=== PATIENT | male | born 1965 | race Caucasian/White ===

== ENCOUNTER → 2016-07-01 | Outpatient (CLI) | payer OTHER ==
--- NOTE | 2016-07-01 21:11 | MR ---
EXAMINATION TYPE: MRI brain without contrast DATE OF EXAM: 07/01/2016 8:31 PM COMPARISON: NONE HISTORY: Headaches, neck pain, lt shoulder numbness x 5 years, no trauma/surgery T1-weighted sagittal, T2, FLAIR, and diffusion axial, and T2 coronal coronal views of the brain are s ubmitted. There is no evidence of acute ischemia. The ventricles, basal cisterns, and sulci overlying the conv exities are consistent with the patient's age. There is no mass effect. There is mucosal thickening involving the posterior nasopharynx which be correlated clinically. White matter: There are approximately 12 white matter lesions seen scattered throughout both cerebral hemispheres. All measure 5 mm or less. No callosal lesions. No lesions perpendicular to the ventricu lar system. No posterior fossa lesions. Craniocervical junction is maintained. Sella turcica has a normal appearance. Changes of mild chronic sinusitis. IMPRESSION: 1. No acute intracranial process. 2. Mild nonspecific white matter changes can be seen with hypertension, migraine headaches, remote mi crovascular ischemia. Demyelinating process not excluded. 3. Mucosal thickening involving the posterior nasopharynx may be postinflammatory but should be corre lated clinically. EXAMINATION TYPE: MRI cervical spine without contrast DATE OF EXAM: 07/01/2016 8:31 PM COMPARISON: NONE HISTORY: Headaches, neck pain, lt shoulder numbness x 5 years, no trauma/surgery TECHNIQUE: T1 sagittal and coronal, T2 sagittal, and gradient echo axial views of the cervical spine are submitted. FINDINGS: The cranial cervical junction is preserved. There is abnormal signal within the cervical s jocelyn cord posteriorly on the left at C5-C6 measures 2 mm. At C2-3 there is mild disc desiccation. Neural foramina patent. No disc herniation or canal stenosis. There is mild bilateral uncovertebral joint hypertrophy. At C3-4 there is severe degenerative disc disease with 1 to 2 mm retrolisthesis of C3 on C4. There is broad-based disc bulging which results in moderate canal stenosis. There is encroachment and mild co mpression of the anterior margin of the spinal cord. Uncovertebral joint hypertrophy contributes to m oderate to severe bilateral foraminal encroachment. 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 No disc herniation o r canal stenosis. Neural foramina patent. At C5-6 there is severe degenerative disc disease. There is diffuse disc bulging capped by spur. This results in anterior compression of the spinal cord and severe canal stenosis. Bilateral foraminal en croachment to a significant degree secondary to uncovertebral joint hypertrophy. Facet arthropathy no melina. At C6-7 there is to severe degenerative disc disease with diffuse disc bulging greater paracentrally and laterally to the right with right-sided moderate foraminal encroachment and moderate left foramin al encroachment. There is mild canal stenosis with disc bulging capped by spur. At C7-T1 there is no disc herniation or canal stenosis. IMPRESSION: 1. Multilevel severe degenerative disc disease with disc protrusions capped by spur resulting in yaw re canal stenosis at C3-4 and C5-C6 with moderate changes at C6-C7. 2. There is anterior compression of the spinal cord at C3-4 and to a greater extent C5-C6. Abnormal s ignal within the spinal cord at the C5-6 level is nonspecific but may be related to compressive myeli tis. Correlate clinically. 3. Multilevel significant foraminal encroachment as discussed above. 4. Suggestion of disc herniation or protrusion at T3-T4 which is not included on the axial images of the cervical spine. Correlate clinically and if necessary with thoracic spine MRI.
== END | disposition home or self-care (01) ==
LOC: RADMRIMAIN 19:45
PROVIDERS: ATTEND Family Medicine
DX: M48.02 Spinal stenosis, cervical region (principal); M50.21 Other cervical disc displacement, high cervical region; M50.31 Other cervical disc degeneration, high cervical region; R90.82 White matter disease, unspecified
CPT/HCPCS: 70551; 72141

== ENCOUNTER → 2016-10-02 | Outpatient (CLI) | payer OTHER ==
[2016-10-02 18:52] LABS: Anion Gap 13 mmol/L; Blood Urea Nitrogen 18 mg/dL (9-20); Carbon Dioxide 26 mmol/L (22-30); Chloride 101 mmol/L (98-107); Non-African American GFR(MDRD) >60 (>60 ml/min/1.73 sqM); Potassium 4.3 mmol/L (3.5-5.1); Sodium 140 mmol/L (137-145)
[2016-10-02 19:03] LABS: Prothrombin Time 10.6 sec (9.0-12.0)
[2016-10-02 19:33] LABS: CH 31.2; CHCM 31.7; HCT 47.9 % (39.0-53.0); HGB 15.8 gm/dL (13.0-17.5); MCH 32.5 pg (25.0-35.0); MCHC 32.9 g/dL (31.0-37.0); MCV 98.6 fL (80.0-100.0); Mean Platelet Volume 7.4; RBC 4.86 m/uL (4.30-5.90); RDW 12.7 % (11.5-15.5); WBC 6.2 k/uL (3.8-10.6)
== END ==
LOC: MMGSC 12:05
PROVIDERS: ATTEND Neurological Surgery
DX: M48.02 Spinal stenosis, cervical region (principal)
CPT/HCPCS: 36415; 80051; 82565; 84520; 85027; 85610; 85730

== ENCOUNTER → 2018-02-26 | Outpatient (CLI) | payer OTHER ==
--- NOTE | 2018-02-26 18:45 | MR ---
EXAMINATION TYPE: MR angio head wo con DATE OF EXAM: 02/26/2018 COMPARISON: NONE HISTORY: cephalgia TECHNIQUE: Time of flight images focusing on the [place] of [place] were performed without contrast.. 2-D and 3-D postprocessing imaging is performed on MRI scanner and reviewed. 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 Patent larger right vertebral artery. No significant stenosis in the posterior circulation is present. There are hypoplastic posterior communicating arteries noted b ilaterally. No aneurysm is evident. There is patent anterior communicating arteries seen. There is no significant focal stenosis or aneur ysmal change. Somewhat small caliber right A1 segment is incidentally seen. IMPRESSION: No aneurysmal change at the level of the [place] of [place].
--- NOTE | 2018-02-26 18:54 | MR ---
EXAMINATION TYPE: MR brain wo con DATE OF EXAM: 02/26/2018 COMPARISON: MRI brain July 01, 2016. HISTORY: cephalgia per order. Severe headache per patient. TECHNIQUE: Multiplanar, multisequence imaging of the brain and brainstem is performed without IV cont rast. FINDINGS: Diffusion weighted images demonstrate no evidence of a recent infarct or other diffusion abnormality. There is no worrisome extra-axial fluid collection. The ventricular system and cisternal spaces are normal in size and appearance. The brain volume is age appropriate. A few scattered small foci of T2 hyperintensity throughout the white matter remain present, estimated 4-2 8 scattered small lesions m ore on the left side. No significant change from prior. Midline structures demonstrate normal morphology. The craniocervical junction appears within normal limits. Normal vascular flow voids are present. The visualized sinuses are clear and the globes are i ntact. IMPRESSION: Mild to minimal nonspecific white matter changes redemonstrated. Once again findings coul d be sequela of altered vascular flow related to migraine headaches. No significant change from prior study.
== END | disposition home or self-care (01) ==
LOC: RADMRIMAIN 11:46
PROVIDERS: ATTEND Family Medicine
DX: R90.82 White matter disease, unspecified (principal)
CPT/HCPCS: 70544; 70551

== ENCOUNTER → 2020-07-22 | Outpatient (CLI) | payer OTHER ==
--- NOTE | 2020-07-22 16:55 | US ---
EXAMINATION TYPE: US venous doppler duplex LE LT DATE OF EXAM: 07/22/2020 2:44 PM COMPARISON: NONE CLINICAL HISTORY: 54-year-old male M79.662 Left leg pain. SIDE PERFORMED: left TECHNIQUE: The lower extremity deep venous system is examined utilizing real time linear array sonog kassy with graded compression, doppler sonography and color-flow sonography. FINDINGS: VESSELS IMAGED: Common Femoral Vein Deep Femoral Vein Greater Saphenous Vein * Femoral Vein Popliteal Vein Small Saphenous Vein * Proximal Calf Veins (* superficial vessels) Left Leg: no evidence of DVT IMPRESSION: No evidence for DVT within the left lower extremity imaged from the groin to the upper calf.
== END | disposition home or self-care (01) ==
LOC: RADUSWWP 14:28
PROVIDERS: ATTEND Family Medicine
DX: M79.662 Pain in left lower leg (principal)

== ENCOUNTER 2020-08-20 08:36 | Emergency (ER) | payer OTHER ==
[2020-08-20 08:49] VITALS: BP 109/75; PULSE 90; RESP 18; TEMP 98.5
--- NOTE | 2020-08-20 10:21 | ED ---
General Adult HPI - General Chief complaint: Weakness Stated complaint: Covid+, worsening symptoms Time Seen by Provider: 08/20/20 09:44 Source: patient Mode of arrival: wheelchair Limitations: no limitations - History of Present Illness Initial comments: Dictation was produced using [employer] dictation software. please excuse any grammatical, word or spelling errors. This patient was cared for during a federal and state declared state of emergency secondary to Covid 19 Chief Complaint: 54-year-old maleinfant comorbid is presents emergency department for Covid 19 symptoms History of Present Illness: T4-year-old male who denies any significant comorbidities. He states that he's been symptomatically Covid 19 approximately 8 days. He tested +7 days ago. Patient has been having symptoms of body aches, lightheaded nausea decreased appetite. Patient also having some fatigue. Patient believes that he contracted disease from another individual and passed on to his . Patient denies any history of pulmonary disease. Denies any history of hematologic cancer or immunosuppression. The ROS documented in this emergency department record has been reviewed and confirmed by me. Those systems with pertinent positive or negative responses have been documented in the HPI. All other systems are other negative and/or noncontributory. PHYSICAL EXAM: General Impression: Alert and oriented x3, not in acute distress HEENT: Normocephalic atraumatic, extra-ocular movements intact, pupils equal and reactive to light bilaterally, mucous membranes moist. Cardiovascular: Heart regular rate and rhythm Chest: Able to complete full sentences, no retractions, no tachypnea Abdomen: abdomen soft, non-tender, non-distended, no organomegaly Musculoskeletal: Pulses present and equal in all extremities, no peripheral edema Motor: no focal deficits noted Neurological: CN II-XII grossly intact, no focal motor or sensory deficits noted Skin: Intact with no visualized rashes Psych: Normal affect and mood ED course: 54-year-old male presents to emergency department for Covid 19. His upon arrival are within acceptable limits. Physical examination is benign. Patient does not meet criteria for monoclonal antibody infusion. Given that his PMI is not high enough, he is not of age does not have any significant comorbidities. An Bonilla pulse ox was obtained. Patient walked a total of approximately 50 yards with no observed hypoxia. Maintain a saturation of 94- 96% the whole time. Chest x-ray shows mild bilateral infiltrates. Patient will be discharged with strict return precautions. Patient is agreeable with plan. He states he does have accessory pulse oximeter. He is told to seek medical attention with any worsening symptoms he is hypoxic - Related Data Home Medications Medication Instructions Recorded Confirmed Omeprazole [PriLOSEC] 20 mg PO DAILY 04/24/15 08/20/20 amLODIPine [Norvasc] 5 mg PO DAILY 08/20/20 08/20/20 Allergies Allergy/AdvReac Type Severity Reaction Status Date / Time Sulfa (Sulfonamide Allergy Rash/Hives Verified 08/20/20 10:18 Antibiotics) Review of Systems ROS Statement: Those systems with pertinent positive or pertinent negative responses have been documented in the HPI. ROS Other: All systems not noted in ROS Statement are negative. Past Medical History Past Medical History: GERD/Reflux Additional Past Medical History / Comment(s): DEG. DISC. DX NECK History of Any Multi-Drug Resistant Organisms: MRSA Date of last positivie culture/infection: 2007 MDRO Source:: UNDER RT ARMPIT Past Surgical History: Orthopedic Surgery Additional Past Surgical History / Comment(s): LEFT BICEP TENDON REPAIR, AMPUTATION OF INDEX FINGER LEFT HAND Past Anesthesia/Blood Transfusion Reactions: No Reported Reaction Past Psychological History: No Psychological Hx Reported Smoking Status: Never smoker Past Alcohol Use History: None Reported Past Drug Use History: None Reported - Past Family History Father Family Medical History: Cancer Additional Family Medical History / Comment(s): BLADDER General Exam Limitations: no limitations Course Vital Signs 08/20/20 08:44 Temperature 98.5 F Pulse Rate 90 Respiratory 18 Rate Blood Pressure 109/75 O2 Sat by Pulse 95 Oximetry Disposition Clinical Impression: COVID-19 Disposition: HOME SELF-CARE Condition: Fair Instructions (If sedation given, give patient instructions): Coronavirus Disease 2019 (COVID-19) Additional Instructions: Today you were evaluated for symptoms consistent with upper respiratory infection. Today you were evaluated for Covid 19. Your are stable for discharge, however it is instructed to to seek immediate medical attention especially if you develop worsening symptoms especially respiratory distress. If possible, try to obtain a pulse oximeter and monitor your oxygen at home. In the meantime please remain in quarantine for 14 days. For any other questions please contact Radha for here in emergency department or [facility] at [phone] Is patient prescribed a controlled substance at d/c from ED?: No Referrals: Lola Dawson MD [Primary Care Provider] - 1-2 days Time of Disposition: 10:21
--- NOTE | 2020-08-20 10:49 | XR ---
EXAMINATION TYPE: XR chest 1V portable DATE OF EXAM: 08/20/2020 COMPARISON: None INDICATION: Short of breath TECHNIQUE: Single frontal view of the chest is obtained. FINDINGS: The heart size is normal. The pulmonary vasculature is normal. There is a mild infiltrate in the right lower lobe. Some peripheral infiltrate is in the left midlung . Findings are nonspecific but can be related to atypical pneumonia. IMPRESSION: 1. Mild bilateral infiltrates. Correlate for atypical pneumonia.
== END 2020-08-20 10:41 | disposition home or self-care (01) ==
LOC: EC 08:36
DX: U07.1 COVID-19 (principal); R91.8 Other nonspecific abnormal finding of lung field; K21.9 Gastro-esophageal reflux disease without esophagitis; Z79.899 Other long term (current) drug therapy; Z88.2 Allergy status to sulfonamides; Z86.14 Personal history of Methicillin resistant Staphylococcus aureus infection
CPT/HCPCS: 71045; 99285

== ENCOUNTER → 2021-09-12 | Outpatient (CLI) | payer OTHER ==
--- NOTE | 2021-09-14 20:12 | CT ---
EXAMINATION TYPE: CT facial bones w con DATE OF EXAM: 09/12/2021 COMPARISON: None. HISTORY: lump on right cheek CT DLP: 587.5 mGycm Automated exposure control for dose reduction was used. CONTRAST: CT scan of the facial bones is performed with IV Contrast, patient injected with 100 mL of Isovue 300 . FINDINGS: The area of clinical concern is not marked by technologist. Overlying the right cheek there is 5 x 2 mm dermal based lesion axial image 35 of uncertain etiology presumed benign. Parotid and submandibular glands are symmetric and thought within normal limits. A few scattered subc entimeter lymph nodes are seen throughout the neck bilaterally greatest just below the parotid glands . There is no abnormal greater than 1 cm neck adenopathy with particular attention to the right neck. Long segment fusion hardware in the cervical spine is partially imaged beginning at C3 level. Visualized airway is patent. Visualized paranasal sinuses are clear. Nasal septum is deviated to righ t of midline. Globes are intact. Visualized portion of brain parenchyma is unremarkable. IMPRESSION: No suspicious right-sided facial solid or cystic mass or abnormal fluid collection. Subo ptimal study as palpable abnormality not marked by technologist.
== END | disposition home or self-care (01) ==
LOC: RADCTMAIN 18:47
PROVIDERS: ATTEND Otolaryngology
DX: R22.0 Localized swelling, mass and lump, head (principal)
CPT/HCPCS: 70487; Q9967

== ENCOUNTER → 2021-10-17 | Outpatient (CLI) | payer OTHER ==
[2021-10-17 23:40] LABS: Calcium 9.9 mg/dL (8.7-10.3)
== END | disposition home or self-care (01) ==
LOC: LABWHC1 15:38
PROVIDERS: ATTEND Psychiatry & Neurology Neurology
DX: G44.021 Chronic cluster headache, intractable (principal); Z79.899 Other long term (current) drug therapy
CPT/HCPCS: 36415; 82306; 82310; 82607

== ENCOUNTER 2021-11-05 09:16 | Day surgery (SDC) | payer OTHER ==
[2021-11-04 08:30] VITALS: BMI 22.8
[~2021-11-05 09:16] MED LIST: FAMOTIDINE 20 MG/2 ML VIAL IV PRN; HYDROmorphone 0.5 MG/0.5 ML SYRINGE IVP PRN; LACTATED RINGERS 1,000 ML IV SCH; LIDOCAINE 1% (10MG/ML) FOR IV START INTRADERMA PRN; ONDANSETRON 4 MG/2 ML VIAL IVP PRN
[2021-11-05 09:38] VITALS: RESP 16
[2021-11-05] MEDS ORDERED: DEXAMETHASONE SOD PHOSPHATE 4 MG/ML 1 ML VIAL IV ONE (09:41)
[2021-11-05] MEDS ORDERED: fentaNYL (PF) 50 MCG/ML 2 ML AMP ONE (10:39)
[2021-11-05] MEDS ORDERED: PROPOFOL 10 MG/ML 20 ML VIAL IV ONE (10:39)
[2021-11-05] MEDS ORDERED: MIDAZOLAM 2 MG/2 ML VIAL ONE (10:39)
[2021-11-05] MEDS ORDERED: LIDOCAINE 2% INJ 20 MG/ML (2 ML VIAL) ONE (10:39)
[2021-11-05] MEDS ORDERED: SUCCINYLCHOLINE CHLORIDE 100 MG/5 ML SYR IV ONE (10:39)
[2021-11-05] MEDS ORDERED: LIDOCAINE 1%-EPI 1:100,000 20 ML VIAL SQ ONE (11:09)
--- NOTE | 2021-11-05 11:34 | P.OP ---
Date of Procedure: 11/05/21 Preoperative Diagnosis: Right cheek subcutaneous lesion Postoperative Diagnosis: Same Procedure(s) Performed: Excision right cheek subcutaneous lesion 3.3 cm with complex closure EMG facial nerve monitoring Anesthesia: GETA Surgeon: Liang Mansfield Estimated Blood Loss (ml): 3 Pathology: other (Right cheek subcutaneous lesion) Condition: stable Disposition: PACU Indications for Procedure: This is a 55-year-old white male who has a slowly enlarging right cheek subcutaneous lesion Operative Findings: Approximately 3.3 x 3 cm subcutaneous fatty lesion consistent with lipoma grossly Description of Procedure: The patient was brought operative suite and placed in a supine position. Patient underwent induction of general anesthesia with oral endotracheal intubation without difficulty. The NIM II EMG facial nerve monitor was placed to monitor the orbicularis olesya and orbicularis oculi muscle with the needle probes. The monitor was working well. The patient was then prepped and draped in usual aseptic fashion for monitoring and was tested and is working well with ballottement of the above-noted muscles. 1% lidocaine with [id number] epinephrine was infused subcutaneously at the incision site. A slightly curvilinear i ncision was then made over the mass and carried sharply through the skin and subcu tissue to the mass itself which was immediately identified. This was then dissected from the surrounding tissue grossly entirely down to the SMAS. There were no notable exposed branches of the facial nerve due to the depth of the excision. Hemostasis was noted since this was excised and the wound was closed in layers including the superficial muscular layer with inverted interrupted 4-0 Vicryl suture subcutaneous layer closed with inverted interrupted 5-0 Vicryl suture and the skin closed with running locking 5-0 Prolene suture. Bacitracin ointment and sterile dressing was placed. The patient was allowed to emerge from anesthesia having tolerated procedure well was extubated in the operating suite and transferred to the postop recovery area in satisfactory condition. Facial nerve movement was good at the conclusion of the case
[2021-11-05 11:47] VITALS: TEMP 97
[2021-11-05 12:39] VITALS: BP 115/76; PULSE 68
== END 2021-11-05 12:58 | disposition home or self-care (01) ==
LOC: OR 09:16
PROVIDERS: ATTEND Otolaryngology
DX: D17.0 Benign lipomatous neoplasm of skin and subcutaneous tissue of head, face and neck (principal); I10 Essential (primary) hypertension; K21.9 Gastro-esophageal reflux disease without esophagitis; Z87.891 Personal history of nicotine dependence; Z82.49 Family history of ischemic heart disease and other diseases of the circulatory system; Z80.0 Family history of malignant neoplasm of digestive organs; Z98.890 Other specified postprocedural states; Z79.899 Other long term (current) drug therapy; Z88.2 Allergy status to sulfonamides
CPT/HCPCS: 88304; 21014; 13132; J2250; J1100; J0690; J2405; J3010; J0330; J2704; J2001